=== PATIENT | male | born 1990 | race Caucasian/White ===

== ENCOUNTER 2019-03-26 10:16 | Day surgery (SDC) | payer OTHER ==
[2019-03-26 10:46] LABS: #Lymphocytes 1.5 thou/uL (1.20-3.40); #Neutrophils 14.8 thou/uL (1.40-6.50); %Basophils 0.1 % (0.0-1.0); %Eosinophils 0.2 % (0.0-10.0); %Lymphocytes 8.4 % (21.0-51.0); %Neutrophils 85.4 % (42.0-75.0); Hemoglobin 15.3 g/dL (14.0-18.0); Mean Corpuscular HGB CONC 34.7 g/dL (32.0-36.0); Mean Corpuscular Hemoglobin 30.7 pg (27.0-31.0); Mean Corpuscular Volume 88.4 fL (78.0-98.0); Mean Platelet Volume 7.1 fL (7.4-10.4); Platelet Count 261 thou/uL (130-400); RBC Distribution Width 11.4 % (11.5-14.5); Red Blood Cell (RBC) Count 4.98 mill/uL (4.70-6.10); White Blood Cell (WBC) Count 17.4 thou/uL (4.8-10.8)
[2019-03-26 11:03] LABS: ALT (SGPT) 21 U/L (8-55); AST (SGOT) 16 U/L (5-34); Alkaline Phosphatase 47 U/L (40-150); Anion Gap 15 mmol/L (10-20); BUN (Urea Nitrogen) 13 mg/dL (8.9-20.6); Calc. Creatinine Clearance 0 mL/min (70-130); Calcium 10.2 mg/dL (7.8-10.44); Carbon Dioxide 25 mmol/L (22-29); Chloride 102 mmol/L (98-107); Estimated GFR-MDRD 86; Globulin 2.9 g/dL (2.4-3.5); Glucose 94 mg/dL (70-105); Lipase 16 U/L (8-78); Potassium 3.5 mmol/L (3.5-5.1); Protein, Total 7.9 g/dL (6.0-8.3); Sodium 138 mmol/L (136-145)
[2019-03-26] MEDS ORDERED: ISOVUE-370 76%-LOCM 1 ML ONE (11:40)
[2019-03-26] MEDS ORDERED: Iopamidol 370 76% 50 ML VIAL FS ONE (11:40)
--- NOTE | 2019-03-26 13:54 | CT ---
CT ABDOMEN AND PELVIS WITH ORAL AND IV CONTRAST: Date: 03/26/19 HISTORY: Abdominal pain, epigastric pain, nausea. FINDINGS: The lung bases are clear. There is a 7 mm low density lesion in the right lobe of the liver. The sple en, pancreas, adrenal glands, and kidneys are normal. No calcified gallstones are seen. No free air o r lymphadenopathy seen. There is a small amount of free fluid in the pelvis. The small bowel loops are not abnormally dilated. The appendix is abnormally dilated and fluid-filled with surrounding periappendiceal inflammatory changes consistent with acute appendicitis. There is a fat-containing inguinoscrotal hernia. IMPRESSION: Acute appendicitis. Discussed over the telephone with ER physician, Dr. Tad Lima, at 1344 hours. CODE CR. POS: OFF
[2019-03-26] MEDS ORDERED: Piperacillin/Tazobactam 4.5 GM VIAL ONE (14:00)
--- NOTE | 2019-03-26 15:05 | HP ---
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 His is on her way to the hospital now. He presents to the emergency room with abdominal pain for the last 2 days. Pain has been in right lower quadrant. He suffered nausea, anorexia, increased pain with movement. He presents to the emergency room and felt to have appendicitis by history and exam, and CAT scan confirms this. ALLERGIES: NONE. SOCIAL HISTORY: Tobacco, none. Alcohol, occasionally. MEDICATIONS: None. PAST SURGICAL HISTORY: Testicular torsion. PAST MEDICAL HISTORY: Noncontributory. REVIEW OF SYSTEMS: Noncontributory. PHYSICAL EXAMINATION: VITAL SIGNS: Blood pressure 118/64, heart rate 64, respiratory rate 18. HEAD EARS, EYES, NOSE AND THROAT: Unremarkable. LUNGS: Clear to auscultation. CARDIAC: Regular rate and rhythm without murmur or gallop. ABDOMEN: Soft. Tenderness in his right lower quadrant with guarding, rebound. EXTREMITIES: Unremarkable. ASSESSMENT AND PLAN: Acute appendicitis. We recommend laparoscopic video appendectomy. Risks and benefits of procedure discussed and he consents. Job ID: [id number]
[2019-03-26] MEDS ORDERED: Succinylcholine Chloride 20 MG/ML 10 ml SYRINGE FS ONE (15:19)
[2019-03-26] MEDS ORDERED: ePHEDrine 50 MG/ML VIAL ONE (15:19)
[2019-03-26] MEDS ORDERED: Lidocaine 1% PF 5 ML VIAL ONE (15:19)
[2019-03-26] MEDS ORDERED: Ondansetron PF 4 MG/2 ML Vial ONE (15:19)
[2019-03-26] MEDS ORDERED: PROPOFOL 200 MG/20 ML VIAL ONE (15:19)
[2019-03-26] MEDS ORDERED: Ketorolac Tromethamine 30 MG/ML VIAL ONE ×2 (15:19→15:25)
[2019-03-26] MEDS ORDERED: Bupivacaine HCl 0.5%/Epinephrine 1:200,000/PF 30 ml Vial ONE (16:04)
[2019-03-26] MEDS ORDERED: Midazolam HCl 2 mg/2 ml Vial ONE (17:10)
[2019-03-26] MEDS ORDERED: Fentanyl 100 MCG/2 ML VIAL ONE (17:10)
[2019-03-26] MEDS ORDERED: HYDROcodone/Acetaminophen 5/325 mg Tablet ONE (19:47)
--- NOTE | 2019-03-26 23:03 | OP ---
DATE OF PROCEDURE: 03/26/2019 PREOPERATIVE DIAGNOSES: Acute appendicitis and left inguinal hernia. POSTOPERATIVE DIAGNOSES: Acute appendicitis and left inguinal hernia. PROCEDURES PERFORMED: Laparoscopic video appendectomy, reduction of omentum from incarcerated left inguinal hernia, video photography. ANESTHESIA: General anesthesia and local 0.5% Marcaine with epinephrine, 30 mL. DESCRIPTION OF PROCEDURE: The patient was taken to the operating room under general anesthesia. Garza catheter placed at the beginning of the procedure and removed at the end. Abdomen was clipped of hair, prepared with ChloraPrep and draped in routine fashion. Infraumbilical incision made, pneumoperitoneum to 15 mmHg obtained with a Veress needle, replaced with a 5 port. The laparoscope inserted. Right subcostal incision made and a 5 port placed. Suprapubic incision made and a 12 port placed. There was noted to be an incarcerated left inguinal hernia with omentum. Omentum was reduced from the hernia defect. The appendix was inflamed and mesoappendix taken down with the LigaSure. Stump of the appendix divided with Endo-YANE blue load stapler. Stapled cecal stump was hemostatic and secured as the appendix removed and submitted to Pathology. Irrigant and pneumoperitoneum evacuated. All instruments removed and suprapubic fascia was approximated with 0 Vicryl and skin with interrupted subdermal 4-0 Monocryl and [place] glue applied. Job ID: [id number]
== END 2019-03-26 20:15 | disposition home or self-care (01) ==
LOC: ERS 10:16 → SDC 15:04
PROVIDERS: ATTEND Specialist
PROC: 0DTJ4ZZ Resection of Appendix, Percutaneous Endoscopic Approach (ICD-10-PCS; principal; 2019-03-26)
DX: K35.80 Unspecified acute appendicitis (principal); K40.30 Unilateral inguinal hernia, with obstruction, without gangrene, not specified as recurrent; Z98.890 Other specified postprocedural states
CPT/HCPCS: 36415; 74177; 80053; 83690; 85025; 88304; 93005; 96365; J0131; J0670; J1885; J2001; J2250; J2405; J2543; J2704; J3010; J3490; Q9966; Q9967